=== PATIENT | female | born 1950 | race Caucasian/White ===

== ENCOUNTER → 2016-04-24 | Outpatient (CLI) | payer OTHER ==
[2014-04-03 16:56] VITALS: BP 125/75
[~2016-04-24] MED LIST: ANAS1TAB3 PO; ASPI81TA50 PO; CHOL100013 PO; CLON1TAB3 PO; CLON2TAB2 PO; EZET10TA3 PO; LEDI1TAB PO; LISI10TA2 PO; LORA0.5T96 PO; LOVA20TA2 PO; MULT1CAP15 PO; OMEG300C PO; PROVENTIL HFA6.7 GM IH; QUET50TA5 PO; SERT50TA PO
--- NOTE | 2016-04-24 13:01 | RAD ---
DATE: 04/24/2016 EXAM: DIGITAL DIAGNOSTIC BILATERAL HISTORY: Right breast carcinoma. COMPARISON: 04/09/2015. This study was interpreted with the benefit of Computerized Aided Detection (CAD). FINDINGS: Postlumpectomy changes right breast are noted. The overall parenchymal pattern is stable. There is moderate parenchymal density bilaterally. No recurrent mass or malignant appearing microcalcifications are seen. The axillae are stable. IMPRESSION: Stable bilateral mammograms with no mammographic features suspicious for malignancy. BI-RADS CATEGORY: 2 BENIGN FINDING(S) RECOMMENDED FOLLOW-UP: 12M 12 MONTH FOLLOW-UP PQRS compliance statement: Patient information was entered into a reminder system with a target due date for the next mammogram. Mammography is a sensitive method for finding small breast cancers, but it does not detect them all and is not a substitute for careful clinical examination. A negative mammogram does not negate a clinically suspicious finding and should not result in delay in biopsying a clinically suspicious abnormality. "Our facility is accredited by the [employer] Mammography Program."
== END | disposition home or self-care (01) ==
LOC: MAMMO 12:48
PROVIDERS: ATTEND Internal Medicine Hematology & Oncology
DX: R92.8 Other abnormal and inconclusive findings on diagnostic imaging of breast (principal); N63 Unspecified lump in breast; Z85.3 Personal history of malignant neoplasm of breast
CPT/HCPCS: 77051; G0204; 77066

== ENCOUNTER 2017-03-02 12:50 | Emergency (ER) | payer OTHER ==
[~2017-03-02] VITALS: Ht 165.1 cm; Wt 57.2 kg
[~2017-03-02 12:50] MED LIST changes: +EZET10TA18 PO; -EZET10TA3 PO; +OXYC10TA PO; +VALIUM10 MG PO
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
--- NOTE | 2017-03-02 14:20 | RAD ---
Left RIBS with chest, 3 views, 03/02/2017: History: Fall, pain, coughing up blood No rib fracture is identified. There is no evidence of pneumothorax or hemothorax. There appears to be minimal streaky atelectasis in the left base. There is calcific plaquing of the aorta. The heart size is normal. The right chest is clear. There is a mild thoracolumbar scoliosis with mild scattered marginal spurring. IMPRESSION: No acute left rib abnormality is detected.
[2017-03-02 14:34] VITALS: BP 128/93
[2017-03-02 15:20] LABS: BILIRUBIN,URINE SMALL (NEG); GLUCOSE,URINE NEGATIVE (NEG); NITRITE,URINE NEGATIVE (NEG); PROTEIN,URINE 30 mg/dL (NEG-TRACE); UROBILINOGEN,URINE 0.2 mg/dL (0.2 mg/dL)
[2017-03-02 15:24] LABS: BACTERIA,URINE FEW /HPF (0-FEW); RBC,URINE >40 /HPF (0-2); SQUAMOUS EPITHELIAL CELL,UR FEW /LPF; WBC,URINE OCC /HPF (0-4)
== END 2017-03-02 15:56 | disposition home or self-care (01) ==
LOC: ER 12:50
DX: S20.212A Contusion of left front wall of thorax, initial encounter (principal); R31.9 Hematuria, unspecified; Z88.2 Allergy status to sulfonamides; W18.39XA Other fall on same level, initial encounter; Y93.89 Activity, other specified; Y92.89 Other specified places as the place of occurrence of the external cause; Y99.8 Other external cause status
CPT/HCPCS: 71101; 81001; 87086; 99285-25

== ENCOUNTER → 2017-03-22 | Outpatient (CLI) | payer OTHER ==
[2017-03-02 14:34] VITALS: BP 128/93
--- NOTE | 2017-03-22 17:22 | RAD ---
Renal ultrasound 03/22/2017 Clinical history: Hematuria. Technique: A real-time ultrasound examination of both kidneys and the urinary bladder was performed. Multiple images were obtained. Findings: Both kidneys are within normal limits in size and echogenicity. The right kidney measures 10.3 cm in length. Left kidney measures 11.0 cm in length. No focal abnormality of either kidney is seen. No renal calculus is noted. There is no evidence of hydronephrosis. The urinary bladder is distended with urine. No abnormality of the urinary bladder is seen. The post void residual is 18 mL. Impression: Negative study.
== END | disposition home or self-care (01) ==
LOC: US 15:05
PROVIDERS: ATTEND Family Medicine
DX: R31.9 Hematuria, unspecified (principal)
CPT/HCPCS: 76770

== ENCOUNTER → 2017-05-18 | Outpatient (CLI) | payer OTHER | END | disposition home or self-care (01) | LOC: MAMMO 12:05 | DX: C50.411 Malignant neoplasm of upper-outer quadrant of right female breast (principal); Z17.0 Estrogen receptor positive status [ER+] | CPT/HCPCS: 77066 ==

== ENCOUNTER → 2018-06-05 | Outpatient (CLI) | payer MEDICARE, OTHER ==
[~2018-06-05] MED LIST changes: +ALBU2.5V8 IH; -ANAS1TAB3 PO; +ANAS1TAB47 PO; +CLON1TAB11 PO; -CLON1TAB3 PO; -CLON2TAB2 PO; +CLON2TAB9 PO; -PROVENTIL HFA6.7 GM IH
--- NOTE | 2018-06-05 13:01 | RAD ---
DATE: 06/05/2018 EXAM: MAMMO DENYS DIAG BILAT HISTORY: Routine screening COMPARISON: 05/18/2017 This study was interpreted with the benefit of Computerized Aided Detection (CAD). Breast Density: SCATTERED The breast parenchyma shows scattered fibroglandular densities. Breast parenchyma level B. FINDINGS: 2-D and 3-D tomosynthesis imaging was performed in CC and MLO projections. There are stable posttherapeutic changes in the right breast. No new or enlarging breast densities are seen. Benign type calcification is present on the right. No suspicious microcalcifications have developed. IMPRESSION: Stable mammograms without evidence of malignancy. BI-RADS CATEGORY: 2 BENIGN FINDING(S) RECOMMENDED FOLLOW-UP: 12M 12 MONTH FOLLOW-UP PQRS compliance statement: Patient information was entered into a reminder system with a target due date for the next mammogram. Mammography is a sensitive method for finding small breast cancers, but it does not detect them all and is not a substitute for careful clinical examination. A negative mammogram does not negate a clinically suspicious finding and should not result in delay in biopsying a clinically suspicious abnormality. "Our facility is accredited by the [employer] Mammography Program."
== END | disposition home or self-care (01) ==
LOC: MAMMO 11:55
PROVIDERS: ATTEND Radiology Radiation Oncology
DX: Z08 Encounter for follow-up examination after completed treatment for malignant neoplasm (principal); Z85.3 Personal history of malignant neoplasm of breast
CPT/HCPCS: 77066; G0279; 77062

== ENCOUNTER → 2018-09-16 | Outpatient (CLI) | payer MEDICARE, OTHER ==
--- NOTE | 2018-09-16 17:24 | KCIC ---
CHEST PA LATERAL Clinical indications: Emphysema. Difficulty breathing. Smoker for years. History of breast cancer. Comparison: None available. Findings: Hyperinflation is seen consistent with COPD. No acute lung infiltrate or pleural effusion or pulmonary edema or lung mass or pneumothorax is seen. The heart size, pulmonary vasculature, mediastinum and both ayaan are unremarkable. The osseous structures appear intact. Impression: No acute radiographic abnormality is seen. Electronically signed by: Magdaleno Pozo MD (09/16/2018 5:21 PM) [place] [id number]
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
== END | disposition home or self-care (01) ==
LOC: KCIC 13:26
PROVIDERS: ATTEND Family Medicine
DX: J43.8 Other emphysema (principal); J34.89 Other specified disorders of nose and nasal sinuses; F17.200 Nicotine dependence, unspecified, uncomplicated; Z85.3 Personal history of malignant neoplasm of breast
CPT/HCPCS: 70160; 71046

== ENCOUNTER → 2019-07-10 | Outpatient (CLI) | payer MEDICARE, OTHER ==
[~2019-07-10] MED LIST changes: -ALBU2.5V8 IH; +ALBU2.5V8 INH; -CLON1TAB11 PO; +CLONAZEPAM1 MG PO; -EZET10TA18 PO; +EZET10TA20 PO; +LISI-334 PO; +PROVENTIL HFA6.7 GM IH
--- NOTE | 2019-07-10 12:53 | RAD ---
DATE: 07/10/2019 12:09 PM EXAM: DIGITAL DIAGNOSTIC BILATERAL HISTORY: History of breast cancer. Right breast lumpectomy. Screening. COMPARISON: June 05, 2018. 2017. Bilateral CC and MLO views of the breasts were performed. Bilateral breast tomosynthesis was performed in CC and MLO projections. This study was interpreted with the benefit of Computerized Aided Detection (CAD). FINDINGS: Breast Density: SCATTERED The breast parenchyma shows scattered fibroglandular densities. Breast parenchyma level B Right breast post lumpectomy findings, unchanged. Benign-appearing calcifications bilaterally. No suspicious masses, microcalcifications or architectural distortion is present to suggest malignancy in either breast. The visualized axillae are unremarkable. IMPRESSION: No mammographic evidence of malignancy. Right breast post lumpectomy findings, unchanged. BI-RADS CATEGORY: 2 BENIGN FINDING(S) RECOMMENDED FOLLOW-UP: 12M 12 MONTH FOLLOW-UP Annual screening mammography is recommended, unless clinically indicated sooner based on symptoms or change in physical exam. PQRS compliance statement: Patient information was entered into a reminder system with a target due date one year for the next mammogram. Mammography is a sensitive method for finding small breast cancers, but it does not detect them all and is not a substitute for careful clinical examination. A negative mammogram does not negate a clinically suspicious finding and should not result in delay in biopsying a clinically suspicious abnormality. "Our facility is accredited by the [employer] Mammography Program."
== END ==
LOC: MAMMO 12:05
PROVIDERS: ATTEND Internal Medicine Hematology & Oncology
DX: C50.411 Malignant neoplasm of upper-outer quadrant of right female breast (principal); R92.2 Inconclusive mammogram; R92.1 Mammographic calcification found on diagnostic imaging of breast; Z17.0 Estrogen receptor positive status [ER+]; Z85.3 Personal history of malignant neoplasm of breast
CPT/HCPCS: 77066

== ENCOUNTER → 2019-11-28 | Outpatient (CLI) | payer MEDICARE, OTHER ==
--- NOTE | 2019-11-28 15:05 | KCIC ---
EXAM: Brain MRI without contrast. HISTORY: Left hand paresthesia. Incontinence. TECHNIQUE: Multiplanar, multisequence magnetic resonance imaging of the brain was performed without contrast. COMPARISON: None. FINDINGS: There is no restricted diffusion to suggest acute or subacute infarction. There is no susceptibility effect to suggest hemorrhage. There is no mass effect or midline shift. There is no hydrocephalus. There are several scattered focal areas of signal change within the cerebral white matter, a nonspecific finding. The orbits are unremarkable. There is mild paranasal sinus because of thickening. There is a small amount of fluid within the left mastoid air cells. There are normal flow voids within the cerebral vessels. No calvarial lesion is seen. IMPRESSION: 1. No acute intracranial finding. 2. Scattered focal areas of signal change within the cerebral white matter, most commonly due to chronic small vessel disease in patients of this age. The possibility of superimposed focal areas of demyelination is not completely excluded given the patient history. Electronically signed by: Katie Fortune MD (11/28/2019 3:01 PM) [facility]
== END | disposition home or self-care (01) ==
LOC: KCIC MRI 13:24
PROVIDERS: ATTEND Family Medicine
DX: R20.2 Paresthesia of skin (principal); R15.9 Full incontinence of feces; I73.9 Peripheral vascular disease, unspecified
CPT/HCPCS: 70551

== ENCOUNTER → 2020-06-28 | Outpatient (CLI) | payer MEDICARE, OTHER ==
[~2020-06-28] MED LIST changes: -LISI-334 PO; +LISI10TA16 PO; -LISI10TA2 PO; +LISI20TA18 PO
--- NOTE | 2020-06-29 07:22 | RAD ---
XR BILATERAL HIP (WITH OR WITHOUT PELVIS) 2 VIEWS_RIGHT 06/28/2020 2:00 PM INDICATION: Back pain, right hip pain COMPARISON: None available. TECHNIQUE: AP view the pelvis and 2 dedicated views the right hip are provided. FINDINGS/ IMPRESSION: There is no acute fracture or dislocation. Mild degenerative changes of the sacroiliac joints, left g reater than right with joint space narrowing and marginal osteophytosis. Moderate right and mild left hip osteoarthrosis with joint space narrowing, subcortical sclerosis and marginal osteophytosis. Oss ific bodies identified in the inferior right femoral acetabular joint space. Bone mineralization is w ithin normal limits. Regional soft tissues are within normal limits. There is no soft tissue gas or o sseous erosion. No radiopaque foreign body. Electronically signed by: Shivani Lopez MD (06/29/2020 7:19 AM) [id number]
== END ==
LOC: RAD 13:27
PROVIDERS: ATTEND Family Medicine
DX: M46.1 Sacroiliitis, not elsewhere classified (principal); M25.751 Osteophyte, right hip
CPT/HCPCS: 73502

== ENCOUNTER → 2020-07-14 | Outpatient (CLI) | payer MEDICARE, OTHER ==
--- NOTE | 2020-07-19 10:17 | RAD ---
DATE: 07/14/2020 EXAM: DIGITAL DIAGNOSTIC BILATERAL HISTORY: History of right lumpectomy in 2015. Annual mammogram. COMPARISON: 07/10/2019, 06/05/2018, 05/18/2017, 04/24/2016, 04/09/2015 This study was interpreted with the benefit of Computerized Aided Detection (CAD). Breast Density: SCATTERED The breast parenchyma shows scattered fibroglandular densities. Breast parenchyma level B. FINDINGS: Surgical changes of lumpectomy in the upper right breast. No suspicious mass, calcifications, or architectural distortion in either breast. IMPRESSION: No evidence of malignancy. BI-RADS CATEGORY: 1 NEGATIVE RECOMMENDED FOLLOW-UP: PQRS compliance statement: Patient information was entered into a reminder system with a target due date for the next mammogram. Mammography is a sensitive method for finding small breast cancers, but it does not detect them all and is not a substitute for careful clinical examination. A negative mammogram does not negate a clinically suspicious finding and should not result in delay in biopsying a clinically suspicious abnormality. "Our facility is accredited by the [employer] Mammography Program." CALEBD
== END ==
LOC: MAMMO 13:48
PROVIDERS: ATTEND Internal Medicine Hematology & Oncology
DX: R92.8 Other abnormal and inconclusive findings on diagnostic imaging of breast (principal); Z85.3 Personal history of malignant neoplasm of breast
CPT/HCPCS: 77066

== ENCOUNTER → 2020-08-09 | Outpatient (CLI) | payer MEDICARE, OTHER ==
--- NOTE | 2020-08-09 15:47 | KCIC ---
INDICATION: Screening for osteopenia/osteoporosis. Postmenopausal evaluation. COMPARISON: June 22, 2014 TECHNIQUE: Bone densitometry was performed through the lumbar spine and proximal femur. IMPRESSION: Lumbar Spine: BMD: 0.86 T-Score: -0.7 Range: Lower limits of normal. Decreased by 9 percent from prior Proximal Femur: BMD: 1.34 T-Score: 2.7 Range: Normal. Increased by 1 percent from prior. World Health Organization Criteria for Bone Density: T-Score: > -1.0: Normal Range < -1.0 to -2.5: Osteopenic Range < -2.5: Osteoporotic Range Electronically signed by: Lauro Ortega MD (08/09/2020 3:45 PM) [id number]
== END ==
LOC: KCIC DEXA 15:07
PROVIDERS: ATTEND Internal Medicine Hematology & Oncology
DX: C50.411 Malignant neoplasm of upper-outer quadrant of right female breast (principal); Z78.0 Asymptomatic menopausal state; Z17.0 Estrogen receptor positive status [ER+]
CPT/HCPCS: 77080

== ENCOUNTER → 2020-10-01 | Outpatient (CLI) | payer MEDICARE, OTHER ==
[~2020-10-01] MED LIST changes: +BUPIVACAINE MPF 0.5% 10 ML VIAL. INT ART ONE; +IOHEXOL 300 MG/ML 50 ML VIAL. INT ART ONE; +methylPREDNISolone ACETATE 40 MG/ML VIAL. INT ART ONE
--- NOTE | 2020-10-01 16:24 | KCIC ---
PROCEDURE: Right hip steroid injection under fluoroscopic guidance INDICATION: Right hip pain. Osteoarthritis. CONTRAST: 5 cc Omnipaque 300 FINDINGS: The risks, benefits and alternatives to the procedure were discussed with the patient. A timeout was performed to confirm the patient's identity and laterality of the injection. Utilizing sterile technique, fluoroscopic guidance and local anesthesia with 1% lidocaine, the right hip joint was accessed utilizing a 22-gauge, 3.5" spinal needle. A small amount contrast was used to confirm the intra-articular location of the needle tip. Subsequently, 2 cc of bupivacaine mixed with 80 mg Depo-Medrol was injected. There were no immediate complications. Fluoroscopy time: 11 seconds Number of images obtained: 1 Impression: Technically successful right hip steroid injection under fluoroscopic guidance. Electronically signed by: RAD SÁNCHEZ MD (10/01/2020 4:22 PM) [id number]
== END | disposition home or self-care (01) ==
LOC: KCIC 12:26
PROVIDERS: ATTEND Orthopaedic Surgery
DX: M16.11 Unilateral primary osteoarthritis, right hip (principal); I10 Essential (primary) hypertension; F41.9 Anxiety disorder, unspecified; F17.210 Nicotine dependence, cigarettes, uncomplicated; Z85.3 Personal history of malignant neoplasm of breast; Z79.899 Other long term (current) drug therapy; Z98.890 Other specified postprocedural states; Z79.82 Long term (current) use of aspirin; Z72.89 Other problems related to lifestyle; Z88.2 Allergy status to sulfonamides
CPT/HCPCS: 20610; 77002; J1030; J3490; Q9967

== ENCOUNTER → 2021-01-17 | Outpatient (CLI) | payer MEDICARE, OTHER ==
[~2021-01-17] MED LIST changes: +AMLO-187 PO; -BUPIVACAINE MPF 0.5% 10 ML VIAL. INT ART ONE; +CALC-71 PO; +CYCL10TA19 PO; +FLUT16SP NS; -IOHEXOL 300 MG/ML 50 ML VIAL. INT ART ONE; +MELA3TAB43 PO; +MELO15TA23 PO; +METO-239 PO; +ONDA4TAB7 PO; +OXYC5CAP PO; +WARF3TAB50 PO; -methylPREDNISolone ACETATE 40 MG/ML VIAL. INT ART ONE; +super beets PO
[2021-01-17 08:54] LABS: ALBUMIN 4.4 g/dL (3.4-5.0); BASO # 0.1 x10^3/uL (0.0-0.2); BASO % 1 % (0-3); CALCIUM 9.3 mg/dL (8.5-10.1); CREATININE 1.2 mg/dL (0.6-1.0); EOS # 0.3 x10^3/uL (0.0-0.7); EOS % 4 % (0-3); GFR 44.7; LYMPH # 1.7 x10^3/uL (1.0-4.8); LYMPH % 25 % (24-48); MEAN CORPUSCULAR HEMOGLOBIN 32 pg (25-35); MEAN CORPUSCULAR HGB CONC 34 g/dL (31-37); MEAN CORPUSCULAR VOLUME 95 fL (79-100); MONO # 0.5 x10^3/uL (0.0-1.1); MONO % 8 % (0-9); NEUT # 4.3 x10^3/uL (1.8-7.7); NEUT % 62 % (31-73); PLATELET COUNT 212 x10^3/uL (140-400); POTASSIUM 4.7 mmol/L (3.5-5.1); RED BLOOD COUNT 4.63 x10^6/uL (3.50-5.40); RED CELL DISTRIBUTION WIDTH 12.8 % (11.5-14.5); WHITE BLOOD COUNT 6.9 x10^3/uL (4.0-11.0)
--- NOTE | 2021-01-17 12:26 | EKG ---
[facility] [address] [place] [address] Test Date: 2021-01-17 Test Time: 12:02:58 Pat Name: ARTURO MACHADO Department: Room: Gender: F Receiving Worker: : [id number] Requested By: LORNA VILLALTA Order Number: [id number] Reading MD: Bony Doty MD Measurements Intervals [place] Rate: 61 P: 43 [place]: 126 QRS: 47 QRSD: 82 T: 62 QT: 446 QTc: 451 Interpretive Statements SINUS RHYTHM Electronically Signed On 01-18-2021 8:55:15 CDT by Bony Doty MD
--- NOTE | 2021-01-17 15:14 | RAD ---
AP and Lateral Views of the Chest 01/17/2021 12:55 PM Indication: Reason: JOINT PREHAB CLASS-RIGHT HIP TOTAL ATHROPLASTY SCHEDULED 01/26/2021 / Spl. Instru ctions: / History: HX HYPERTENSION/TOBACCO ABUSE Comparison: Chest radiograph September 16, 2018. Findings: There is no focal consolidation or infiltrate identified. Heart size is normal. Mild aortic calcification noted. There is no evidence of pneumothorax or pleural effusion. No acute osseous abno rmalities are identified. Impression: No evidence of acute cardiopulmonary process. Electronically signed by: Leopoldo Jones MD (01/17/2021 3:11 PM) [id number]
[2021-01-18 00:12] LABS: HEMOGLOBIN A1C 5.9 % (4.8-5.6)
== END ==
LOC: SURGPAT 12:24
PROVIDERS: ATTEND Orthopaedic Surgery
DX: Z01.818 Encounter for other preprocedural examination (principal); I70.0 Atherosclerosis of aorta; M16.11 Unilateral primary osteoarthritis, right hip
CPT/HCPCS: 36415; 71046; 80048; 82040; 82306; 83036; 85025; 85610; 85651; 85730; 87641; 93005

== ENCOUNTER → 2021-01-19 | Outpatient (CLI) | payer MEDICARE, OTHER | LOC: LAB 13:46 | PROVIDERS: ATTEND Orthopaedic Surgery | DX: Z01.818 Encounter for other preprocedural examination (principal); M16.11 Unilateral primary osteoarthritis, right hip | CPT/HCPCS: 36415; 80307 ==

== ENCOUNTER → 2021-01-25 | Outpatient (CLI) | payer MEDICARE, OTHER ==
[2021-01-25 16:07] LABS: BILIRUBIN,URINE NEGATIVE (NEG); CLARITY,URINE CLEAR; COLOR,URINE YELLOW; NITRITE,URINE POSITIVE (NEG); PH,URINE 5.5 (<5.0-8.0); PROTEIN,URINE NEGATIVE (NEG-TRACE); UROBILINOGEN,URINE 0.2 mg/dL (0.2 mg/dL)
[2021-01-25 16:11] LABS: BACTERIA,URINE MANY /HPF (0-FEW)
[2021-01-25 16:12] LABS: RBC,URINE OCC /HPF (0-2)
== END ==
LOC: LAB 12:41
PROVIDERS: ATTEND Orthopaedic Surgery
DX: N39.0 Urinary tract infection, site not specified (principal)
CPT/HCPCS: 81001; 87077; 87086; 87186

== ENCOUNTER 2021-02-01 09:35 | Inpatient (IN) | payer MEDICARE, OTHER ==
[2021-02-01] VITALS (8 sets, daily range): BP systolic 91–126; BP diastolic 56–65
[~2021-02-01] VITALS: Ht 162.6 cm; Wt 75.6 kg
[~2021-02-01 09:35] MED LIST changes: +ACETAMINOPHEN 500 MG TABLET PO PRN; +GABAPENTIN 300 MG CAPSULE. PO ONE; +HYDROmorphone 2 MG/ML VIAL IVP PRN; +IV RINGERS,LACTATED 1000ML 1,000 ML IV SCH; +MELOXICAM 7.5 MG TABLET PO ONE; +MORPHINE SULFATE 2 MG/ML INJ. IVP PRN; +MORPHINE SULFATE 5 MG, KETOROLAC 30MG VIAL 30 MG, ROPIVacaine 0.5% PF 60 ML, EPINEPHrin... INT ART ONE; -OXYC5CAP PO; +PROCHLORPERAZINE 10 MG/2 ML VIAL. IVP PRN; -WARF3TAB50 PO; +ceFAZolin SODIUM IV Push 1 GM VIAL. IVP PRN; +fentaNYL PF VIAL 100 MCG/2 ML VIAL IVP PRN
[2021-02-01] MEDS ORDERED: PROPOFOL 10 MG/ML (20ML) VIAL. IV ONE ×2 (09:47)
[2021-02-01] MEDS ORDERED: DEXAMETHASONE SOD PHOS 4 MG/ML VIAL ONE (09:47)
[2021-02-01] MEDS ORDERED: LIDOCAINE 2% PF 5 ML VIAL. ONE (09:47)
[2021-02-01] MEDS ORDERED: ONDANSETRON PF 4 MG/2 ML VIAL. ONE (09:47)
[2021-02-01] MEDS ORDERED: ROCURONIUM 50 MG/5 ML VIAL. ONE ×2 (09:48→13:33)
[2021-02-01] MEDS ORDERED: GLYCOPYRROLATE 1 MG/5 ML VIAL. ONE ×3 (09:48→14:12)
[2021-02-01] MEDS ORDERED: fentaNYL PF VIAL 100 MCG/2 ML VIAL ONE (10:28)
[2021-02-01 10:32] LABS: BILIRUBIN,URINE NEGATIVE (NEG); CLARITY,URINE CLEAR; COLOR,URINE YELLOW; NITRITE,URINE NEGATIVE (NEG); PROTEIN,URINE NEGATIVE (NEG-TRACE); UROBILINOGEN,URINE 0.2 mg/dL (0.2 mg/dL)
[2021-02-01 10:50] LABS: BACTERIA,URINE 0 /HPF (0-FEW); RBC,URINE 0 /HPF (0-2); WBC,URINE 0 /HPF (0-4)
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
[2021-02-01 11:35] LABS: PROTHROMBIN TIME PATIENT 13.5 SEC (11.7-14.0)
[2021-02-01] MEDS ORDERED: PHENYLEPHRINE in 0.9% NACL PF 1 MG/10 ML SYRINGE. IV ONE ×2 (12:25→13:35)
[2021-02-01] MEDS ORDERED: ePHEDrine PF IN SALINE 50 MG/10 ML SYRINGE. IV ONE (12:33)
[2021-02-01] MEDS ORDERED: HYDROmorphone 2 MG/ML VIAL ONE (13:00)
[2021-02-01] MEDS ORDERED: VANCOMYCIN 1 GM VIAL. ONE (13:24)
[2021-02-01] MEDS ORDERED: NEOSTIGMINE METHYLSULFATE 5 MG/5 ML SYRINGE. ONE (13:36)
[2021-02-01] MEDS ORDERED: MORPHINE SULFATE 2 MG/ML INJ. ONE (14:46)
[2021-02-01] MEDS ORDERED: ceFAZolin SODIUM IV Push 1 GM VIAL. IVP SCH (17:00)
[2021-02-01] MEDS ORDERED: fentaNYL PF VIAL 100 MCG/2 ML VIAL IVP PRN (17:15)
[2021-02-01] MEDS ORDERED: diphenhydrAMINE 50 MG/ML VIAL IVP PRN (17:15)
[2021-02-01] MEDS ORDERED: MORPHINE SULFATE 2 MG/ML INJ. IVP PRN (17:15)
[2021-02-01] MEDS ORDERED: CALCIUM CARBONATE 500 MG TAB.CHEW PO PRN (17:15)
[2021-02-01] MEDS ORDERED: DEXTROSE 50% 25 GM / 50ML DISP.SYRIN. IV PRN (17:15)
[2021-02-01] MEDS ORDERED: PROCHLORPERAZINE 5 MG TABLET. PO PRN (17:15)
[2021-02-01] MEDS ORDERED: 0.9 % SODIUM CHLORIDE 10 ML DISP.SYRIN. IV PRN (17:15)
[2021-02-01] MEDS: IV NORMAL SALINE 1000ML BAG 1,000 ML IV SCH (17:15)
--- NOTE | 2021-02-01 17:45 | NUR ---
RECEIVED FROM RECOVERY. THEY STATES THAT SHE ESTHER BEEN SLEEPING DOWN THERE. SHE DOES AROUSE TO NAME AND FOLLOWS COMMANDS BUT RESUMES SLEEP QUICKLY. O2 SAT ON 2.5 L IS 85% O2 INCREASED TO 4 LITERS TO GET A CONSISTENT 91-93%. IV FLUIDS CONTINUE AT 100CC HR UNTIL SHE NEEDS TO URINATE. SHE ASKED FOR HER TEETH AND CELL PHONE GIVEN. SHE HAS GOOD MOTION AND PULSES BILATERAL LOWER EXTREMITIES, STRENGTH. STRENGTH IN LOWER EXTREMITIES IS WEAK BILATERAL RELATED TO SEDATION
--- NOTE | 2021-02-01 17:59 | NUR ---
Pharmacy Warfarin Dosing Note S:Pharmacy consulted to assist with anticoagulation therapy started 02/01/21 with target INR: 1.6 - 2.5 O:ARTURO MACHADO is a 70 year old F with [facility] LABS: Last INR: 1.0 Last HGB: Last HCT: Last PLT: Last dose of given on at Previous Regimen: Vitamin K given: N Drug Interaction Changes: Ongoing Drug Interactions: A:INR of 1.0 is below desired range. Target range for this patient is: 1.6 - 2.5 P: Warfarin dose: 5 mg Today at 1800. Bridge Therapy: None Next INR due tomorrow. Pharmacy anticoagulation service will continue to follow. Ld Jim [facility], 02/01/21 [id number]
[2021-02-01] MEDS ORDERED: WARFARIN 5 MG TABLET. PO ONE (18:00)
--- NOTE | 2021-02-01 18:23 | PDOC4 ---
Operative Note Operative Note Date of surgery: 02/01/2021 Preoperative diagnosis: Degenerative joint disease right hip Postoperative diagnosis: Same Operative procedure: Right total hip arthroplasty with anterior approach Surgeon Krystina Pug [place] Operator: Edgardo yoder Anesthesia: General Estimated blood loss: 400 cc Complications: None Drains: None Operative indications: Please see my orthopedic clinic note and dictated history and physical for detailed operative indications and note that we covered risks benefits postoperative course of the procedure. We did discuss the goal of equa lizing her leg lengths and that may not be entirely possible due to stability concerns which would override. We specifically discussed the possibility of infection leg length inequality, nerve or blood vessel damage premature wear or loosening medical or other anesthetic complications among others. All her questions were answered and she wishes to proceed with surgical evaluation and treatment having given informed consent Operative text: Patient was identified procedure verified patient placed in the supine position on the [place] fracture table after adequate amounts of general anesthesia were administered. All bony prominences were well-padded and left hip was prepped and draped in the standard sterile fashion. After timeout was performed patient procedure identified and verified an incision was made just distal to the anterior superior iliac spine running along the tensor fascia mikey for a distance of about 6 inches. Fascia was incised tensor fascia mikey was taken laterally and circumflex vessels were located and coagulated and the anterior capsule was exposed with the rectus femoris gently retracted medially along with the underlying fascia that was dissected free. Capsule was split in a T-shaped incision and superior aspect of the capsule was excised and further superior release was carried out with the hip in external rotation. Hip was returned to 40 degrees external rotation and a napkin ring cut was made with an Avenir Katey broach for reference napkin ring was removed and femoral head was removed and sized. Reaming was carried out to a size 53 with a size 54 Biomet G7 acetabular shell was placed in proper version under fluoroscopic guidance and excellent scratch fit was noted. A 40 mm vitamin E liner was impacted into place. Femur was brought into maximum external rotation extension and adduction and release was carried out at the 11 o'clock position to free up the femur and retractors were placed medially and above the greater trochanter for maximum femoral exposure box osteotome was used along with the rattail rasp and successive size broaching up to a size 2 which provided excellent stability and fit within the canal. Calcar reaming was carried out and trial fitting with a +0 40 mm head to reproduce leg length and offset appropriately under fluoroscopic guidance and matched leg lengths and offset to the contralateral left hip. Trial components were removed and a size 2 standard offset collared Avenir stem was impacted into place with a +0 ceramic 40 mm head. Excellent stability and range of motion were noted and leg length and offset were reproduced closely according to preoperative measurements and measurements from the contralateral side. Thorough irrigation carried out with normal saline solution and pulse lavage. Intra-articular mixture was injected subperiosteally throughout the joint capsule and subcutaneous areas and 1 g vancomycin sprinkled throughout the joint capsule area. Fascia was closed with #1 PDS strata fix suture in a running fashion subcutaneous closure with buried Vicryl skin closure with subcuticular Monocryl and a debra dressing was applied. Patient was returned to recovery room in stable condition having tolerated the procedure well. Edgardo yoder was present for the procedure and assisted in the patient positioning prepping draping retraction closure and dressings LORNA VILLALTA MD Feb 01, 2021 18:23
[2021-02-01] MEDS: ONDANSETRON ODT 4 MG TAB.RAPDIS. PO SCH (19:20)
[2021-02-01] MEDS: ONDANSETRON PF 4 MG/2 ML VIAL. IVP SCH (19:20)
--- NOTE | 2021-02-01 19:29 | PDOC2 ---
CONSULT Date of Consult Date of Consult DATE: 02/01/21 TIME: 19:26 Current Medications Current Medications Current Medications Morphine Sulfate 5 mg/Ketorolac Tromethamine 30 mg/Ropivacaine 60 ml/Epinephrine HCl 0.5 mg/Sodium Chloride 100 ml @ 100 mls/hr 1X ONCE INT ART Last admi nistered on 02/01/21at 14:09; Start 02/01/21 at 06:00; Stop 02/01/21 at 06:59; Status DC Fentanyl Citrate (Fentanyl 2ml Vial) 25 mcg PRN Q5MIN PRN IVP MILD PAIN 1-3; Start 02/01/21 at 06:00; Stop 02/02/21 at 05:59 Fentanyl Citrate (Fentanyl 2ml Vial) 50 mcg PRN Q5MIN PRN IVP MODERATE PAIN 4- 6; Start 02/01/21 at 06:00; Stop 02/02/21 at 05:59 Morphine Sulfate (Morphine Sulfate) 1 mg PRN Q10MIN PRN IVP SEVERE PAIN 7-10; Start 02/01/21 at 06:00; Stop 02/02/21 at 05:59 Ringer's Solution 1,000 ml @ 30 mls/hr Q24H IV Last administered on 02/01/21at 11:11; Start 02/01/21 at 06:00; Stop 02/01/21 at 17:59; Status DC Hydromorphone HCl (Dilaudid) 0.5 mg PRN Q10MIN PRN IVP SEVERE PAIN 7-10, 2nd CHOICE; Start 02/01/21 at 06:00; Stop 02/02/21 at 05:59 Prochlorperazine Edisylate (Compazine) 5 mg PACU PRN PRN IVP NAUSEA, MRX1; Start 02/01/21 at 06:00; Stop 02/02/21 at 05:59 Cefazolin Sodium (Ancef) 1 gm 1X PREOP PRN IVP PRIOR TO PROCEDURE; Start 02/01/21 at 08:00; Stop 02/01/21 at 18:58; Status DC Meloxicam (Mobic) 15 mg 1X ONCE PO Last administered on 02/01/21at 11:12; Start 02/01/21 at 08:00; Stop 02/01/21 at 08:01; Status DC Gabapentin (Neurontin) 600 mg 1X ONCE PO Last administered on 02/01/21at 11:12; Start 02/01/21 at 08:00; Stop 02/01/21 at 08:01; Status DC Acetaminophen (Tylenol) 1,000 mg 1X PREOP PRN PO PRIOR TO PROCEDURE Last administered on 02/01/21at 11:13; Start 02/01/21 at 08:00 Lidocaine HCl (Lidocaine Pf 2% Vial) 5 ml STK-MED ONCE .ROUTE ; Start 02/01/21 at 09:47; Stop 02/01/21 at 09:47; Status DC Propofol (Diprivan) 200 mg STK-MED ONCE IV ; Start 02/01/21 at 09:47; Stop 02/01/21 at 09:47; Status DC Propofol (Diprivan) 200 mg STK-MED ONCE IV ; Start 02/01/21 at 09:47; Stop 02/01/21 at 09:47; Status DC Ondansetron HCl (Zofran) 4 mg STK-MED ONCE .ROUTE ; Start 02/01/21 at 09:47; Stop 02/01/21 at 09:48; Status DC Dexamethasone Sodium Phosphate (Decadron) 4 mg STK-MED ONCE .ROUTE ; Start 02/01/21 at 09:47; Stop 02/01/21 at 09:48; Status DC Glycopyrrolate (Robinul) 1 mg STK-MED ONCE .ROUTE ; Start 02/01/21 at 09:48; Stop 02/01/21 at 09:48; Status DC Rocuronium [place] (Zemuron) 50 mg STK-MED ONCE .ROUTE ; Start 02/01/21 at 09 :48; Stop 02/01/21 at 09:48; Status DC Fentanyl Citrate (Fentanyl 2ml Vial) 100 mcg STK-MED ONCE .ROUTE ; Start 02/01/21 at 10:28; Stop 02/01/21 at 10:28; Status DC Phenylephrine HCl (PHENYLEPHRINE in 0.9% NACL PF) 1 mg STK-MED ONCE IV ; Start 02/01/21 at 12:25; Stop 02/01/21 at 12:25; Status DC Ephedrine Sulfate (ePHEDrine PF IN SALINE SYRINGE) 50 mg STK-MED ONCE IV ; Start 02/01/21 at 12:33; Stop 02/01/21 at 12:34; Status DC Hydromorphone HCl (Dilaudid) 2 mg STK-MED ONCE .ROUTE ; Start 02/01/21 at 13:00; Stop 02/01/21 at 13:00; Status DC Vancomycin HCl (Vancomycin) 1 gm STK-MED ONCE .ROUTE ; Start 02/01/21 at 13:24; Stop 02/01/21 at 13:24; Status DC Rocuronium [place] (Zemuron) 50 mg STK-MED ONCE .ROUTE ; Start 02/01/21 at 13:33; Stop 02/01/21 at 13:33; Status DC Phenylephrine HCl (PHENYLEPHRINE in 0.9% NACL PF) 1 mg STK-MED ONCE IV ; Start 02/01/21 at 13:35; Stop 02/01/21 at 13:35; Status DC Neostigmine [place] (Neostigmine Methylsulfate) 5 mg STK-MED ONCE .ROUTE ; Start 02/01/21 at 13:36; Stop 02/01/21 at 13:36; Status DC Glycopyrrolate (Robinul) 1 mg STK-MED ONCE .ROUTE ; Start 02/01/21 at 14:12; Stop 02/01/21 at 14:12; Status DC Glycopyrrolate (Robinul) 1 mg STK-MED ONCE .ROUTE ; Start 02/01/21 at 14:12; Stop 02/01/21 at 14:12; Status DC Morphine Sulfate (Morphine Sulfate) 2 mg STK-MED ONCE .ROUTE ; Start 02/01/21 at 14:46; Stop 02/01/21 at 14:46; Status DC Morphine Sulfate (Morphine Sulfate) 2 mg PRN Q1HR PRN IVP PAIN-SEE COMMENTS; Start 02/01/21 at 17:15 Fentanyl Citrate (Fentanyl 2ml Vial) 25 mcg PRN Q1HR PRN IVP PAIN, 2nd CHOICE; Start 02/01/21 at 17:15 Diphenhydramine HCl (Benadryl) 25 mg PRN Q6HRS PRN IVP ITCHING; Start 02/01/21 at 17:15 Warfarin Sodium (Coumadin Per Pharmacy) 1 each PRN DAILY PRN MC SEE COMMENTS Last administered on 02/01/21at 17:55; Start 02/01/21 at 17:15 Multivitamins (Thera M Plus) 1 tab DAILY PO ; Start 02/02/21 at 09:00 Senna/Docusate Sodium (Senna Plus) 1 tab DAILY PO ; Start 02/02/21 at 09:00 Ferrous Sulfate (Feosol) 325 mg BIDWMEALS PO ; Start 02/02/21 at 08:00 Sodium Chloride 1,000 ml @ 40 mls/hr Q24H IV Last administered on 02/01/21at 17:15; Start 02/01/21 at 17:15 Prochlorperazine Maleate (Compazine) 10 mg PRN Q4HRS PRN PO Nausea/vomiting, 2nd choice; Start 02/01/21 at 17:15 Magnesium Hydroxide (Milk Of Magnesia) 2,400 mg 1X PRN PRN PO CONSTIPATION; Start 02/02/21 at 06:00; Stop 02/03/21 at 05:59 Bisacodyl (Dulcolax Supp) 10 mg 1X PRN PRN [place] CONSTIPATION; Start 02/02/21 at 16:00; Stop 02/03/21 at 15:59 Zolpidem Tartrate (Ambien) 5 mg PRN QHS PRN PO INSOMNIA, MAY REPEAT IN 1HR; Start 02/01/21 at 17:15 Calcium Carbonate/ Glycine (Tums) 500 mg PRN QID PRN PO INDIGESTION; Start 02/01/21 at 17:15 Sodium Chloride (Normal Saline Flush) 10 ml QSHIFT PRN IV AFTER MEDS AND BLOOD DRAWS; Start 02/01/21 at 17:15 Acetaminophen (Tylenol) 1,000 mg Q6H PO ; Start 02/02/21 at 09:00 Meloxicam (Mobic) 15 mg DAILY PO ; Start 02/02/21 at 09:00 Tramadol HCl (Ultram) 50 mg Q6H PO ; Start 02/02/21 at 06:00 Gabapentin (Neurontin) 100 mg Q8HRS PO ; Start 02/02/21 at 06:00 Ondansetron HCl (Zofran) 4 mg Q6HRS IVP ; Start 02/01/21 at 18:00; Stop 02/02/21 at 12:01 Ondansetron HCl (Zofran Odt) 4 mg Q6HRS PO ; Start 02/01/21 at 18:00; Stop 02/02/21 at 12:01 Ondansetron HCl (Zofran) 4 mg PRN Q6HRS PRN IVP Nausea/vomiting, 1st choice; Start 02/02/21 at 12:00 Ondansetron HCl (Zofran Odt) 4 mg PRN Q6HRS PRN PO Nausea/vomiting, 1st choice; Start 02/02/21 at 12:00 Oxycodone HCl (Roxicodone) 5 mg PRN Q4HRS PRN PO Pain score 4-6; Start 02/01/21 at 17:15 Dextrose (Dextrose 50%-Water Syringe) 12.5 gm PRN Q15MIN PRN IV SEE COMMENTS; Start 02/01/21 at 17:15 Cefazolin Sodium (Ancef) 1 gm Q6H IVP ; Start 02/01/21 at 17:00; Stop 02/02/21 at 05:01 Ciprofloxacin (Cipro) 500 mg BID PO ; Start 02/01/21 at 21:00 Warfarin Sodium (Coumadin) 5 mg 1X WARF ONCE PO ; Start 02/01/21 at 18:00; Stop 02/01/21 at 18:01; Status DC Active Scripts Active Reported [super beets] 1 Cap PO DAILY Melatonin 3 Mg Tab.rapdis 3 Mg PO QHS Fluticasone Propionate Nasal [place] (Fluticasone Propionate) 16 Gm [place].susp 2 [place] NS DAILY Amlodipine Besylate 10 Mg Tablet 10 Mg PO DAILY Zofran (Ondansetron Hcl) 4 Mg Tablet 4 Mg PO BID PRN Metoprolol Succinate ( Xl ) (Metoprolol Succinate) 25 Mg Tab.er.24h 50 Mg PO DAILY Meloxicam 15 Mg Tablet 15 Mg PO DAILY Calcium 600 + Vit D Caplet (Calcium Carbonate/Vitamin D3) 1 Each Tablet 1 Each PO DAILY Proair Hfa Inhaler (Albuterol Sulfate) 8.5 Gm Hfa.aer.ad 1 Puff INH PRN Q6HRS PRN Lisinopril 20 Mg Tablet 40 Mg PO DAILY Valium (Diazepam) 10 Mg Tablet 5-10 Mg PO PRN BID PRN Lovastatin 20 Mg Tablet 20 Mg PO HS Clonazepam 1 Mg Tablet 1 Mg PO TID Arimidex (Anastrozole) 1 Mg Tablet 1 Mg PO DAILY Aspir-Low (Aspirin) 81 Mg Tablet.dr 1 Tab PO DAILY Multivitamins (Multivitamin) 1 Each Capsule 1 Each PO DAILY Fish Oil ([place]-3 Fatty Acids) 300 Mg Capsule 1,000 Mg PO DAILY Allergies Allergies: Coded Allergies: Sulfa (Sulfonamide Antibiotics) (Verified Allergy, Intermediate, 02/01/21) ezetimibe (Verified Adverse Reaction, Intermediate, Rash, 02/01/21) Vitals VITALS Vital Signs Date Time Temp Pulse Resp B/P (MAP) Pulse Ox O2 Delivery O2 Flow Rate FiO2 02/01/21 17:58 Nasal Cannula 4.0 02/01/21 17:30 98.0 78 20 105/65 95 98.0 Labs Labs Laboratory Tests Test 02/01/21 10:15 02/01/21 11:10 Urine Color Yellow Urine Clarity Clear Urine pH 5.0 (<5.0-8.0) Urine Specific [place] 1.020 (1.000-1.030) Urine Protein Negative mg/dL (NEG-TRACE) Urine Glucose (UA) Negative mg/dL (NEG) Urine Ketones (Stick) Negative mg/dL (NEG) Urine Blood Trace (NEG) Urine Nitrite Negative (NEG) Urine Bilirubin Negative (NEG) Urine Urobilinogen Dipstick 0.2 mg/dL (0.2 mg/dL) Urine Leukocyte Esterase Small (NEG) Urine RBC 0 /HPF (0-2) Urine WBC 0 /HPF (0-4) Urine Squamous Epithelial Cells Few /LPF Urine Bacteria 0 /HPF (0-FEW) Prothrombin Time 13.5 SEC (11.7-14.0) Prothromb Time International Ratio 1.0 (0.8-1.1) Activated Partial Thromboplast Time 27 SEC (24-38) Laboratory Tests Test 02/01/21 10:15 02/01/21 11:10 Urine Color Yellow Urine Clarity Clear Urine pH 5.0 (<5.0-8.0) Urine Specific [place] 1.020 (1.000-1.030) Urine Protein Negative mg/dL (NEG-TRACE) Urine Glucose (UA) Negative mg/dL (NEG) Urine Ketones (Stick) Negative mg/dL (NEG) Urine Blood Trace (NEG) Urine Nitrite Negative (NEG) Urine Bilirubin Negative (NEG) Urine Urobilinogen Dipstick 0.2 mg/dL (0.2 mg/dL) Urine Leukocyte Esterase Small (NEG) Urine RBC 0 /HPF (0-2) Urine WBC 0 /HPF (0-4) Urine Squamous Epithelial Cells Few /LPF Urine Bacteria 0 /HPF (0-FEW) Prothrombin Time 13.5 SEC (11.7-14.0) Prothromb Time International Ratio 1.0 (0.8-1.1) Activated Partial Thromboplast Time 27 SEC (24-38) Assessment/Plan Assessment/Plan Check CMP Renal U/S to assess for any anatomic abnormalities; could consider CT IVP if nonrevealing Patient on warfarin and getting Mobic will place on Pepcid Does seem patient got an adequate course of Levaquin but continue Cipro for total of 3 days for patient to get full 10-day course If Diarrhea continues consider checking C. difficile DAVON VILLATORO MD Feb 01, 2021 19:29
[2021-02-01] MEDS ORDERED: LIDO:MAALOX 1:1 20 ML SINGLE DOSE. PO PRN (19:30)
[2021-02-01] MEDS: ceFAZolin SODIUM IV Push 1 GM VIAL. IVP SCH (21:59)
[2021-02-01] MEDS: FAMOTIDINE 20 MG TABLET. PO SCH (21:59)
[2021-02-01] MEDS: CIPROFLOXACIN HCL 250 MG TABLET. PO SCH (22:00)
--- NOTE | 2021-02-01 23:17 | NUR ---
Upon giving Patient ordered Coumadin, Patient stated "It scares me." Asked Patient if she wanted to take it and Patient stated. "I'll take it i Dr. Flaherty ordered it, He's a good doctor." Coumadin given per order.
[2021-02-02 03:30] VITALS: BP 96/62
[2021-02-02] MEDS: ceFAZolin SODIUM IV Push 1 GM VIAL. IVP SCH ×2 (03:31→08:59)
[2021-02-02] MEDS: oxyCODONE IR 5 MG TABLET PO PRN ×4 (03:31→21:53)
[2021-02-02] MEDS ORDERED: MAGNESIUM HYDROXIDE 2,400 MG/30 ML ORAL.SUSP. PO PRN (06:00)
[2021-02-02] MEDS: ONDANSETRON PF 4 MG/2 ML VIAL. IVP SCH ×3 (06:17→11:42)
[2021-02-02] MEDS: traMADol 50 MG TABLET PO SCH ×3 (06:17→17:48)
[2021-02-02] MEDS: ONDANSETRON ODT 4 MG TAB.RAPDIS. PO SCH ×3 (06:17→11:43)
[2021-02-02] MEDS: GABAPENTIN 100 MG CAPSULE. PO SCH ×3 (06:18→21:52)
[2021-02-02 06:21] VITALS: BP 92/53
[2021-02-02 07:42] LABS: PROTHROMBIN TIME PATIENT 15.2 SEC (11.7-14.0)
[2021-02-02 07:57] LABS: ALBUMIN 2.8 g/dL (3.4-5.0); CREATININE 1.4 mg/dL (0.6-1.0); GFR 37.4; POTASSIUM 4.9 mmol/L (3.5-5.1); TOTAL BILIRUBIN 0.4 mg/dL (0.2-1.0); TOTAL PROTEIN 5.5 g/dL (6.4-8.2)
[2021-02-02 08:34] LABS: HEMATOCRIT 28.9 % (36.0-47.0); HEMOGLOBIN 9.7 g/dL (12.0-15.5)
--- NOTE | 2021-02-02 08:54 | PDOC ---
[employer] PROGRESS NOTE Date of Service DOS: DATE: 02/02/21 TIME: 08:47 Chief Complaint Chief Complaint Post-OP day 1 Osteoarthritis of right HIP UTI H/O falls Tobacco usage History of Present Illness History of Present Illness 02/02 Patient seen and examined at bedside. Patient resting comfortably. Chart reviewed. Case discussed with RN and case loader operator. The patient is a 70-year-old who has had really about a 9-month history of severe right hip pain. She thinks that has been progressively worse since a fall on her right side. Early this year, she had initially been treated with some compression fractures and a back injury, but was not progressing with physical therapy and was found to have severe degenerative arthritis in her hip and received an orthopedic referral from her physical therapist. She said that she has had a lot of difficulty walking progressively over this time period and has mainly having a severe limp and wheelchair also has a lot of difficulties in her apartment where there were some bed bugs issues and she indicates that the fall was actually result of trying to put insect problems in her apartment and she was trying to get out of her apartment and got partially overcome and fell on the floor on the right hip to make the situation progressively worse. Notable for smoking a couple of cigarettes only she said about two and that is it after her testing preoperatively. She had also had urinary tract infection symptoms, which precipitated a visit to Dr. Lynn preoperatively where her surgery was scheduled last week. At that time, her urinary culture results were somewhat unclear as culture results were reported to be taken then were reported that they were either not taken or lost and then they were found again and found to have a urinary tract infection. She was on Levaquin for a 1-week course. She no longer has burning on urination and no fever or chills. No chest pain, shortness of breath or other constitutional symptoms. However, she does indicate some recent vomiting and diarrhea. No lightheadedness. She is concerned that she is very severely limited in terms ofher ability to get around and does really want to proceed with surgery. Vitals/I&O Vitals/I&O: Vital Signs Date Time Temp Pulse Resp B/P (MAP) Pulse Ox O2 Delivery O2 Flow Rate FiO2 02/02/21 06:47 Nasal Cannula 4.0 02/02/21 06:21 97.7 69 18 92/53 (66) 94 97.7 I & O 11/2/21 11/2/21 11/3/21 15:00 23:00 07:00 Intake Total 1200 ml 900 ml 600 ml Output Total 100 ml 100 ml Balance 1100 ml 900 ml 500 ml Physical Exam General: No acute distress Heart: Regular rate, No murmurs Lungs: Clear Abdomen: Normal bowel sounds, Soft, No tenderness, No masses Extremities: No clubbing Skin: No rashes Labs Labs: Laboratory Tests Test 02/01/21 10:15 02/01/21 11:10 02/02/21 07:00 Urine Color Yellow Urine Clarity Clear Urine pH 5.0 (<5.0-8.0) Urine Specific [place] 1.020 (1.000-1.030) Urine Protein Negative mg/dL (NEG-TRACE) Urine Glucose (UA) Negative mg/dL (NEG) Urine Ketones (Stick) Negative mg/dL (NEG) Urine Blood Trace (NEG) Urine Nitrite Negative (NEG) Urine Bilirubin Negative (NEG) Urine Urobilinogen Dipstick 0.2 mg/dL (0.2 mg/dL) Urine Leukocyte Esterase Small (NEG) Urine RBC 0 /HPF (0-2) Urine WBC 0 /HPF (0-4) Urine Squamous Epithelial Cells Few /LPF Urine Bacteria 0 /HPF (0-FEW) Prothrombin Time 13.5 SEC (11.7-14.0) 15.2 SEC (11.7-14.0) Prothromb Time International Ratio 1.0 (0.8-1.1) 1.2 (0.8-1.1) Activated Partial Thromboplast Time 27 SEC (24-38) Hemoglobin 9.7 g/dL (12.0-15.5) Hematocrit 28.9 % (36.0-47.0) Mean Corpuscular Hemoglobin Concent 34 g/dL (31-37) Sodium Level 138 mmol/L (136-145) Potassium Level 4.9 mmol/L (3.5-5.1) Chloride Level 105 mmol/L (98-107) Carbon Dioxide Level 24 mmol/L (21-32) Anion Gap 9 (6-14) Blood Urea Nitrogen 23 mg/dL (7-20) Creatinine 1.4 mg/dL (0.6-1.0) Estimated GFR (Cockcroft-Gault) 37.4 BUN/Creatinine Ratio 16 (6-20) Glucose Level 110 mg/dL (70-99) Calcium Level 8.0 mg/dL (8.5-10.1) Total Bilirubin 0.4 mg/dL (0.2-1.0) Aspartate Amino Transf (AST/SGOT) 21 U/L (15-37) Alanine Aminotransferase (ALT/SGPT) 31 U/L (14-59) Alkaline Phosphatase 45 U/L (46-116) Total Protein 5.5 g/dL (6.4-8.2) Albumin 2.8 g/dL (3.4-5.0) Albumin/Globulin Ratio 1.0 (1.0-1.7) Review of Systems Review of Systems: ROS negative except as noted in HPI. Assessment and Plan Assessmemt and Plan Assessment: Post-OP day 1 Osteoarthritis of right HIP UTI H/O falls Tobacco usage Plan Abx for UTI Trend labs Wound care PT/OT Full Code Dispo: Inpatient post-op recovery Comment Review of Relevant I have reviewed the following items shaila (where applicable) has been applied. Medications: Current Medications Medications (Trade) Dose Ordered Sig/Shnae Route PRN Reason Start Time Stop Time Status Last Admin Dose Admin Warfarin Sodium (Coumadin Per Pharmacy) 1 each PRN DAILY PRN MC SEE COMMENTS 02/01/21 17:15 02/01/21 17:55 Sodium Chloride 1,000 ml @ 40 mls/hr Q24H IV 02/01/21 17:15 02/01/21 17:15 Tramadol HCl (Ultram) 50 mg Q6H PO 02/02/21 06:00 02/02/21 06:17 Oxycodone HCl (Roxicodone) 5 mg PRN Q4HRS PRN PO Pain score 4-6 02/01/21 17:15 02/02/21 03:31 Ciprofloxacin (Cipro) 500 mg BID PO 02/01/21 21:00 02/04/21 09:01 02/01/21 22:00 Warfarin Sodium (Coumadin) 5 mg 1X WARF ONCE PO 02/01/21 18:00 02/01/21 18:01 DC 02/01/21 23:16 Famotidine (Pepcid) 20 mg QHS PO 02/01/21 21:00 02/01/21 21:59 Cefazolin Sodium (Ancef) 1 gm Q6H IVP 02/01/21 21:00 02/02/21 09:01 02/02/21 03:31 Justifications for Admission Other Justification ZOLTAN RIVERS III DO Feb 02, 2021 08:54
--- NOTE | 2021-02-02 08:54 | RAD ---
EXAM: US RENAL BILAT 02/01/2021 5:27 AM INDICATION: UTIs. COMPARISON: None TECHNIQUE: grayscale and color Doppler ultrasound images of the kidneys and bladder. FINDINGS: The right kidney measures 10.2 x 3.8 x 4.3 cm. The left kidney measures 9.7 x 4.1 x 4.7 cm. Renal e chogenicity and cortical thickness are normal. No hydronephrosis. The urinary bladder is unremarkable without wall thickening or debris. IMPRESSION: Normal renal ultrasound. Electronically signed by: China Lomax MD (02/02/2021 8:52 AM) [id number]
[2021-02-02] MEDS: MELOXICAM 7.5 MG TABLET PO SCH (08:55)
[2021-02-02] MEDS: MULTIVITAMIN with MINERAL TABLET. PO SCH (08:55)
[2021-02-02] MEDS: FERROUS SULFATE 325 MG TABLET. PO SCH ×2 (08:56→17:49)
[2021-02-02] MEDS: SENNOSIDES/DOCUSATE 8.6/50MG TABLET. PO SCH (09:00)
[2021-02-02] MEDS: ACETAMINOPHEN 500 MG TABLET PO SCH ×3 (09:00→21:53)
[2021-02-02] MEDS: CIPROFLOXACIN HCL 250 MG TABLET. PO SCH ×2 (09:08→21:52)
--- NOTE | 2021-02-02 10:06 | NUR ---
Pharmacy Warfarin Dosing Note S:Pharmacy consulted to assist with anticoagulation therapy started 02/01/21 with target INR: 1.6 - 2.5 O:ARTURO MACHADO is a 70 year old F with [facility] LABS: Last INR: 1.2 Last HGB: 9.7 Last HCT: 28.9 Last PLT: 34 Last dose of 5 mg given on 02/01/21 at 2316 Vitamin K given: N Drug Interaction Changes: New Interacting Drug Ongoing Drug Interactions: Meloxicam, ciprofloxacin A:INR of 1.2 is below desired range. Target range for this patient is: 1.6 - 2.5 P: Warfarin dose: 5 mg Today at 1600 Bridge Therapy: None Next INR due 02/03/21 Pharmacy anticoagulation service will continue to follow. DUNCAN AGARWAL RPH, 02/02/21 [id number]
[2021-02-02] MEDS: IV NORMAL SALINE 1000ML BAG 1,000 ML IV SCH (11:40)
[2021-02-02] MEDS ORDERED: ONDANSETRON ODT 4 MG TAB.RAPDIS. PO PRN (12:00)
[2021-02-02] MEDS ORDERED: ONDANSETRON PF 4 MG/2 ML VIAL. IVP PRN (12:00)
--- NOTE | 2021-02-02 14:25 | NUR ---
Received orders to discharge with outpatient therapy that was arranged by Dr. Hedrick's office and prescriptions sent via electronic to pharmacy. Addendum: 02/02/21 at 1712 by BORA CHAPMAN RN Above note written on wrong patient
[2021-02-02 15:15] VITALS: BP 146/88
[2021-02-02] MEDS ORDERED: BISACODYL 10 MG SUPP.RECT. PR PRN (16:00)
[2021-02-02] MEDS ORDERED: WARFARIN 5 MG TABLET. PO ONE (16:00)
--- NOTE | 2021-02-02 16:30 | NUR ---
Discharged instructions and dressing supplies given. Answered questions and concerns. Verbalized understanding. Pt discharged home with outpatient therapy. Escorted out by w/c. Addendum: 02/02/21 at 1711 by BORA CHAPMAN RN Above note written on wrong patient
[2021-02-02 19:00] VITALS: BP 107/82
--- NOTE | 2021-02-02 20:08 | PDOC ---
PROGRESS NOTES Date of Service DATE: 02/02/21 TIME: 20:02 Subjective Subjective Problems overnight: Patient reports that hip feels much better than preoperatively especially getting up and around, no nausea or vomiting, 1 episode of diarrhea today Objective Vital Signs Vital Signs Date Time Temp Pulse Resp B/P (MAP) Pulse Ox O2 Delivery O2 Flow Rate FiO2 02/02/21 19:00 98.5 70 19 107/82 (90) 94 Nasal Cannula 4.5 98.5 Physical Exam Leg lengths equal distal neurovascular status intact debra dressing clean dry intact Labs Laboratory Tests Test 02/01/21 10:15 02/01/21 11:10 02/02/21 07:00 Urine Color Yellow Urine Clarity Clear Urine pH 5.0 (<5.0-8.0) Urine Specific [place] 1.020 (1.000-1.030) Urine Protein Negative mg/dL (NEG-TRACE) Urine Glucose (UA) Negative mg/dL (NEG) Urine Ketones (Stick) Negative mg/dL (NEG) Urine Blood Trace (NEG) Urine Nitrite Negative (NEG) Urine Bilirubin Negative (NEG) Urine Urobilinogen Dipstick 0.2 mg/dL (0.2 mg/dL) Urine Leukocyte Esterase Small (NEG) Urine RBC 0 /HPF (0-2) Urine WBC 0 /HPF (0-4) Urine Squamous Epithelial Cells Few /LPF Urine Bacteria 0 /HPF (0-FEW) Prothrombin Time 13.5 SEC (11.7-14.0) 15.2 SEC (11.7-14.0) Prothromb Time International Ratio 1.0 (0.8-1.1) 1.2 (0.8-1.1) Activated Partial Thromboplast Time 27 SEC (24-38) Hemoglobin 9.7 g/dL (12.0-15.5) Hematocrit 28.9 % (36.0-47.0) Mean Corpuscular Hemoglobin Concent 34 g/dL (31-37) Sodium Level 138 mmol/L (136-145) Potassium Level 4.9 mmol/L (3.5-5.1) Chloride Level 105 mmol/L (98-107) Carbon Dioxide Level 24 mmol/L (21-32) Anion Gap 9 (6-14) Blood Urea Nitrogen 23 mg/dL (7-20) Creatinine 1.4 mg/dL (0.6-1.0) Estimated GFR (Cockcroft-Gault) 37.4 BUN/Creatinine Ratio 16 (6-20) Glucose Level 110 mg/dL (70-99) Calcium Level 8.0 mg/dL (8.5-10.1) Total Bilirubin 0.4 mg/dL (0.2-1.0) Aspartate Amino Transf (AST/SGOT) 21 U/L (15-37) Alanine Aminotransferase (ALT/SGPT) 31 U/L (14-59) Alkaline Phosphatase 45 U/L (46-116) Total Protein 5.5 g/dL (6.4-8.2) Albumin 2.8 g/dL (3.4-5.0) Albumin/Globulin Ratio 1.0 (1.0-1.7) Laboratory Tests Test 02/02/21 07:00 Hemoglobin 9.7 g/dL (12.0-15.5) Hematocrit 28.9 % (36.0-47.0) Mean Corpuscular Hemoglobin Concent 34 g/dL (31-37) Prothrombin Time 15.2 SEC (11.7-14.0) Prothromb Time International Ratio 1.2 (0.8-1.1) Sodium Level 138 mmol/L (136-145) Potassium Level 4.9 mmol/L (3.5-5.1) Chloride Level 105 mmol/L (98-107) Carbon Dioxide Level 24 mmol/L (21-32) Anion Gap 9 (6-14) Blood Urea Nitrogen 23 mg/dL (7-20) Creatinine 1.4 mg/dL (0.6-1.0) Estimated GFR (Cockcroft-Gault) 37.4 BUN/Creatinine Ratio 16 (6-20) Glucose Level 110 mg/dL (70-99) Calcium Level 8.0 mg/dL (8.5-10.1) Total Bilirubin 0.4 mg/dL (0.2-1.0) Aspartate Amino Transf (AST/SGOT) 21 U/L (15-37) Alanine Aminotransferase (ALT/SGPT) 31 U/L (14-59) Alkaline Phosphatase 45 U/L (46-116) Total Protein 5.5 g/dL (6.4-8.2) Albumin 2.8 g/dL (3.4-5.0) Albumin/Globulin Ratio 1.0 (1.0-1.7) Imaging Intraoperative fluoroscopy images show excellent alignment of total hip arthroplasty with equal leg lengths and offset Renal ultrasound today reported as normal with no evidence of calculi Assessment Assessment POD#1 right total hip arthroplasty Plan Plan of Care Continue mobilize with physical therapy weightbearing as tolerated no formal hip precautions due to anterior approach Appreciate medical consult and follow Renal ultrasound negative for calculi or other concern for harboring chronic UTI infection IV cefazolin ending, continue ciprofloxacin for UTI/any concern for infectious diarrhea Social history may be a concern due to her conditions in the apartment, rehab screening placed postop day 0, patient does have a caregiver part-time that assists other clients as well; home health versus rehab placement depending on progress Justicifation of Admission Dx: Justifications for Admission: Justification of Admission Dx: N/A LORNA VILLALTA MD Feb 02, 2021 20:08
--- NOTE | 2021-02-02 21:00 | NUR ---
Patient showing signs of panic attack. Offers numerous complaints: "overtired", "I need more therapy, I'm not ready to go home alone." "If I go to a [place], I'll .", "I'm not crazy but I have a lot of problems". States she lives alone, has bed bugs in the [place] and that the mgr is extorting money". Also states she wants the "OT package from the gift shop but she doesn't have the money right now." Crying. Right hip is swollen and bruised and FELIPE is wet from edge to edge. Incision cleansed w/ Chloraprep, ABD and Medipore tape applied.
[2021-02-02] MEDS: FAMOTIDINE 20 MG TABLET. PO SCH (21:52)
[2021-02-02] MEDS: ZOLPIDEM 5 MG TABLET. PO PRN (21:53)
[2021-02-03] MEDS: ACETAMINOPHEN 500 MG TABLET PO SCH ×4 (03:00→20:33)
[2021-02-03] MEDS ORDERED: ALBUTEROL SULFATE 2.5 MG/3 ML NEBU. INH PRN (05:15)
[2021-02-03] MEDS: traMADol 50 MG TABLET PO SCH ×5 (06:20→23:25)
[2021-02-03 06:24] VITALS: BP 115/69
--- NOTE | 2021-02-03 07:12 | NUR ---
Surgical incision dressing changed again. No active bleeding noted.
--- NOTE | 2021-02-03 07:17 | NUR ---
Some home medications renewed. BP meds not renewed due to current hypotension. Patient is sleeping soundly.
[2021-02-03 08:29] LABS: HEMATOCRIT 26.6 % (36.0-47.0)
[2021-02-03 08:45] LABS: PROTHROMBIN TIME PATIENT 19.7 SEC (11.7-14.0)
[2021-02-03] MEDS: MELOXICAM 7.5 MG TABLET PO SCH (09:13)
[2021-02-03] MEDS: oxyCODONE IR 5 MG TABLET PO PRN ×3 (09:13→20:35)
[2021-02-03] MEDS: CALCIUM CARB/VIT D3 500/200 TABLET. PO SCH (09:13)
[2021-02-03] MEDS: SENNOSIDES/DOCUSATE 8.6/50MG TABLET. PO SCH (09:13)
[2021-02-03] MEDS: CIPROFLOXACIN HCL 250 MG TABLET. PO SCH ×2 (09:13→20:34)
[2021-02-03] MEDS: FERROUS SULFATE 325 MG TABLET. PO SCH ×2 (09:13→17:31)
[2021-02-03] MEDS: MULTIVITAMIN with MINERAL TABLET. PO SCH (09:13)
[2021-02-03] MEDS: clonazePAM 0.5 MG TABLET PO SCH ×3 (09:14→20:34)
--- NOTE | 2021-02-03 10:01 | NUR ---
Pharmacy Warfarin Dosing Note S: Pharmacy consulted to assist with anticoagulation therapy started 02/01/21 O: ARTURO MACHADO is a 70 year old F with KALI LABS: Last INR: 1.7 Last HGB: 9.7 Last HCT: 28.9 Last PLT: 34 Last dose of 5 mg given on 02/02/21 at 1749 Vitamin K given: N Ongoing Drug Interactions: Meloxicam, ciprofloxacin A:INR of 1.7 is within desired range. Target range for this patient is: 1.6 - 2.5 P: Warfarin dose: 3 mg Prior to Discharge then d/c home with 4mg daily Bridge Therapy: None Next INR due Sunday02/07/21 Pharmacy anticoagulation service will continue to follow. Yulissa Villarreal RPH, 02/03/21 100
[2021-02-03 11:05] VITALS: BP 100/56
--- NOTE | 2021-02-03 11:34 | PDOC ---
[facility] PROGRESS NOTE Date of Service DOS: DATE: 02/03/21 TIME: 11:32 Chief Complaint Chief Complaint Post-OP day 1 Osteoarthritis of right HIP UTI H/O falls Tobacco usage History of Present Illness History of Present Illness 02/03 Patient evaluated examined at bedside. She is doing well pain well controlled. No further urinary symptoms. Okay to discharge from hospitalist perspective. Okay to stop antibiotics for now. Recommend PCP follow-up and referral to urology. 02/02 Patient seen and examined at bedside. Patient resting comfortably. Chart reviewed. Case discussed with RN and therapeutic case manager. The patient is a 70-year-old who has had really about a 9-month history of severe right hip pain. She thinks that has been progressively worse since a fall on her right side. Early this year, she had initially been treated with some compression fractures and a back injury, but was not progressing with physical therapy and was found to have severe degenerative arthritis in her hip and received an orthopedic referral from her physical therapist. She said that she has had a lot of difficulty walking progressively over this time period and has mainly having a severe limp and wheelchair also has a lot of difficulties in her apartment where there were some bed bugs issues and she indicates that the fall was actually result of trying to put insect problems in her apartment and she was trying to get out of her apartment and got partially overcome and fell on the floor on the right hip to make the situation progressively worse. Notable for smoking a couple of cigarettes only she said about two and that is it after her testing preoperatively. She had also had urinary tract infection symptoms, which precipitated a visit to Dr. Lynn preoperatively where her surgery was scheduled last week. At that time, her urinary culture results were somewhat unclear as culture results were reported to be taken then were reported that they were either not taken or lost and then they were found again and found to have a urinary tract infection. She was on Levaquin for a 1-week course. She no longer has burning on urination and no fever or chills. No chest pain, shortness of breath or other constitutional symptoms. However, she does indicate some recent vomiting and diarrhea. No lightheadedness. She is concerned that she is very severely limited in terms ofher ability to get around and does really want to proceed with surgery. Vitals/I&O Vitals/I&O: Vital Signs Date Time Temp Pulse Resp B/P (MAP) Pulse Ox O2 Delivery O2 Flow Rate FiO2 02/03/21 11:05 98.2 92 20 100/56 (71) 92 Room Air 98.2 02/03/21 06:44 5.0 I & O 02/02/21 02/02/21 02/03/21 15:00 23:00 07:00 Intake Total 300 ml 480 ml Balance 300 ml 480 ml Physical Exam General: Alert, Oriented X3, Cooperative, No acute distress Heart: Regular rate, No murmurs Lungs: Clear Abdomen: Normal bowel sounds, Soft, No tenderness, No masses Extremities: No clubbing Skin: No rashes Labs Labs: Laboratory Tests Test 02/03/21 07:35 Hemoglobin 9.0 g/dL (12.0-15.5) Hematocrit 26.6 % (36.0-47.0) Mean Corpuscular Hemoglobin Concent 34 g/dL (31-37) Prothrombin Time 19.7 SEC (11.7-14.0) Prothromb Time International Ratio 1.7 (0.8-1.1) Assessment and Plan Assessmemt and Plan Assessment: Post-OP day 2 Osteoarthritis of right HIP UTI H/O falls Tobacco usage Plan Abx for UTI. Completed treatment Trend labs Wound care PT/OT Full Code Dispo: Home with assistance versus home with home health Comment Review of Relevant I have reviewed the following items shaila (where applicable) has been applied. Medications: Current Medications Medications (Trade) Dose Ordered Sig/Shane Route PRN Reason Start Time Stop Time Status Last Admin Dose Admin Warfarin Sodium (Coumadin) 5 mg 1X WARF ONCE PO 02/02/21 16:00 02/02/21 16:01 DC 02/02/21 17:49 Albuterol Sulfate (Ventolin Neb Soln) 2.5 mg PRN Q6HRS PRN INH SHORTNESS OF BREATH 02/03/21 05:15 02/03/21 06:48 Calcium/Vitamin D (Oscal D 500mg/ 200uts) 1 tab DAILY PO 02/03/21 09:00 02/03/21 09:13 Clonazepam (KlonoPIN) 1 mg TID PO 02/03/21 09:00 02/03/21 09:14 Justifications for Admission Other Justification DAVON VILLATORO MD Feb 03, 2021 11:34
[2021-02-03] MEDS: ANASTROZOLE 1 MG TABLET PO SCH (12:11)
--- NOTE | 2021-02-03 13:05 | NUR ---
covid test completed and sent to lab
[2021-02-03] MEDS ORDERED: WARFARIN 3 MG TABLET. PO ONE (15:00)
--- NOTE | 2021-02-03 15:00 | NUR ---
NEW debra DRESSING APPLIED. WANTS TO GO TO REHAB AT THIS TIME. DR. THOMPSON. SHE IS MORE AWAKE AND ALERT THIS AFTERNOON.
[2021-02-03 15:02] VITALS: BP 103/53
--- NOTE | 2021-02-03 18:32 | NUR ---
transferred to room 430.
[2021-02-03 19:00] VITALS: BP 117/54
[2021-02-03] MEDS: FAMOTIDINE 20 MG TABLET. PO SCH (20:34)
[2021-02-03] MEDS: ZOLPIDEM 5 MG TABLET. PO PRN (20:35)
[2021-02-03] MEDS ORDERED: ATORVASTATIN CALCIUM 10 MG TABLET. PO SCH (21:00)
--- NOTE | 2021-02-03 22:30 | PDOC ---
PROGRESS NOTES Date of Service DATE: 02/03/21 TIME: 22:26 Subjective Subjective Problems overnight: Still having hip pain reasonably controlled by pain medication, reluctant to fully participate in physical therapy, needed significant encouragement Objective Vital Signs Vital Signs Date Time Temp Pulse Resp B/P (MAP) Pulse Ox O2 Delivery O2 Flow Rate FiO2 02/03/21 19:00 98.5 92 16 117/54 (75) 87 Nasal Cannula 2.0 98.5 Physical Exam Rosalinda dressing intact leg lengths equal distal neurovascular status intact, muscle soreness with motion and with ambulation Labs Laboratory Tests Test 02/02/21 07:00 02/03/21 07:35 Hemoglobin 9.7 g/dL (12.0-15.5) 9.0 g/dL (12.0-15.5) Hematocrit 28.9 % (36.0-47.0) 26.6 % (36.0-47.0) Mean Corpuscular Hemoglobin Concent 34 g/dL (31-37) 34 g/dL (31-37) Prothrombin Time 15.2 SEC (11.7-14.0) 19.7 SEC (11.7-14.0) Prothromb Time International Ratio 1.2 (0.8-1.1) 1.7 (0.8-1.1) Sodium Level 138 mmol/L (136-145) Potassium Level 4.9 mmol/L (3.5-5.1) Chloride Level 105 mmol/L (98-107) Carbon Dioxide Level 24 mmol/L (21-32) Anion Gap 9 (6-14) Blood Urea Nitrogen 23 mg/dL (7-20) Creatinine 1.4 mg/dL (0.6-1.0) Estimated GFR (Cockcroft-Gault) 37.4 BUN/Creatinine Ratio 16 (6-20) Glucose Level 110 mg/dL (70-99) Calcium Level 8.0 mg/dL (8.5-10.1) Total Bilirubin 0.4 mg/dL (0.2-1.0) Aspartate Amino Transf (AST/SGOT) 21 U/L (15-37) Alanine Aminotransferase (ALT/SGPT) 31 U/L (14-59) Alkaline Phosphatase 45 U/L (46-116) Total Protein 5.5 g/dL (6.4-8.2) Albumin 2.8 g/dL (3.4-5.0) Albumin/Globulin Ratio 1.0 (1.0-1.7) Laboratory Tests Test 02/03/21 07:35 Hemoglobin 9.0 g/dL (12.0-15.5) Hematocrit 26.6 % (36.0-47.0) Mean Corpuscular Hemoglobin Concent 34 g/dL (31-37) Prothrombin Time 19.7 SEC (11.7-14.0) Prothromb Time International Ratio 1.7 (0.8-1.1) Assessment Assessment POD#2 total hip arthroplasty Plan Plan of Care Continue mobilize with physical therapy Warfarin anticoagulation per pharmacy Patient decided on rehabilitation which is a reasonable request given her difficulties with her reported apartment situation etc. Otherwise stable from an orthopedic standpoint and plan discharge tomorrow to [facility] facility pending approval/logistics Covid test etc. Appreciate hospitalist input and plan to discontinue her supplemental antibiotics on discharge Justicifation of Admission Dx: Justifications for Admission: Justification of Admission Dx: N/A LORNA VILLALTA MD Feb 03, 2021 22:30
[2021-02-03] MEDS ORDERED: WARF3TAB50 PO (22:33)
--- NOTE | 2021-02-03 22:35 | SNU/HH DC ---
DISCHARGE ORDERS DISCHARGE INFORMATION: DISCHARGE DATE: Feb 04, 2021 FINAL DIAGNOSIS Degenerative right hip, status post right total hip arthroplasty CONDITION ON DISCHARGE: Stable CODE STATUS: Code Status: Full CARE HOME: SNF STAY <30 DAYS: Yes POST DISCHARGE ORDERS: ACTIVITY ORDERS: Progressive ambulation WEIGHT BEARING STATUS: As tolerated BATHING ORDERS: Shower-keep dressing dry DIET AFTER DISCHARGE: Regular WOUND/INCISION CARE: Ice to area for comfort, Do not change dressing (Maintain debra dressing, call if saturated, otherwise when suction machine stops approximately 1 week postoperatively discard suction unit cut tail of dressing and tape over to maintain seal) FOLLOW-UP: PHYSICIAN FOLLOW-UP: Mr. Best 2 weeks postoperatively ANTICOAGULATION F/U NEEDED: Warfarin dosage and testing per [place] [facility] anticoagulation clinic TREATMENT/EQUIPMENT ORDERS: Physical Therapy For: Evalulation/Treatment DISCHARGE MEDICATIONS: Home Meds Reported Medications [super beets] No Conflict Check, 1 CAP PO DAILY for supplement 01/20/21 Melatonin (MELATONIN) 3 Mg Tab.rapdis, 3 MG PO QHS for sleep aid, TAB 01/20/21 Fluticasone Propionate (FLUTICASONE PROPIONATE NASAL SPRAY) 16 Gm [place].susp, 2 SPRAY NS DAILY for control allergies, EACH 01/20/21 Amlodipine Besylate (AMLODIPINE BESYLATE) 10 Mg Tablet, 10 MG PO DAILY for bp control, TAB 01/20/21 Ondansetron Hcl (ZOFRAN) 4 Mg Tablet, 4 MG PO BID PRN for NAUSEA/VOMITING, TAB 01/20/21 Metoprolol Succinate (METOPROLOL SUCCINATE ( XL )) 25 Mg Tab.er.24h, 50 MG PO DAILY for FOR HYPERTENSION, #30 TAB 0 Refills 01/20/21 Meloxicam (MELOXICAM) 15 Mg Tablet, 15 MG PO DAILY for pain control, TAB 01/20/21 Calcium Carbonate/Vitamin D3 (CALCIUM 600 + VIT D CAPLET) 1 Each Tablet, 1 EACH PO DAILY for supplement, TAB 01/20/21 Albuterol Sulfate (PROAIR HFA INHALER) 8.5 Gm Hfa.aer.ad, 1 PUFF INH PRN Q6HRS PRN for SHORTNESS OF BREATH 02/14/19 Lisinopril (LISINOPRIL) 20 Mg Tablet, 40 MG PO DAILY for FOR HYPERTENSION 02/14/19 Diazepam (VALIUM) 10 Mg Tablet, 5-10 MG PO PRN BID PRN for ANXIETY / AGITATION 10/11/16 Lovastatin (LOVASTATIN) 20 Mg Tablet, 20 MG PO HS for hld 03/23/15 Clonazepam (CLONAZEPAM) 1 Mg Tablet, 1 MG PO TID for anxiety 03/23/15 Anastrozole (ARIMIDEX) 1 Mg Tablet, 1 MG PO DAILY for breast cancer 09/28/14 Aspirin (ASPIR-LOW) 81 Mg Tablet.dr, 1 TAB PO DAILY for heart health 03/31/14 Multivitamin (MULTIVITAMINS) 1 Each Capsule, 1 EACH PO DAILY for supplement 03/31/14 [place]-3 Fatty Acids (FISH OIL) 300 Mg Capsule, 1000 MG PO DAILY for supplement 03/31/14 Discontinued Reported Medications Cyclobenzaprine Hcl (CYCLOBENZAPRINE HCL) 10 Mg Tablet, 10 MG PO QHS for spasms, TAB 01/20/21 LORNA VILLALTA MD Feb 03, 2021 22:35
[2021-02-03 23:00] VITALS: BP 109/56
[2021-02-04] MEDS: ACETAMINOPHEN 500 MG TABLET PO SCH ×3 (02:43→13:33)
[2021-02-04] MEDS: oxyCODONE IR 5 MG TABLET PO PRN ×3 (04:00→15:23)
[2021-02-04 04:01] LABS: HEMATOCRIT 24.6 % (36.0-47.0); HEMOGLOBIN 8.3 g/dL (12.0-15.5)
[2021-02-04 04:10] LABS: PROTHROMBIN TIME PATIENT 21.2 SEC (11.7-14.0)
[2021-02-04] MEDS: traMADol 50 MG TABLET PO SCH ×2 (06:31→12:09)
[2021-02-04 07:00] VITALS: BP 107/54
[2021-02-04] MEDS: clonazePAM 0.5 MG TABLET PO SCH ×2 (08:27→13:33)
[2021-02-04] MEDS: ANASTROZOLE 1 MG TABLET PO SCH (08:29)
[2021-02-04] MEDS: MULTIVITAMIN with MINERAL TABLET. PO SCH (08:30)
[2021-02-04] MEDS: CALCIUM CARB/VIT D3 500/200 TABLET. PO SCH (08:30)
[2021-02-04] MEDS: MELOXICAM 7.5 MG TABLET PO SCH (08:30)
[2021-02-04] MEDS: CIPROFLOXACIN HCL 250 MG TABLET. PO SCH (08:30)
[2021-02-04] MEDS: SENNOSIDES/DOCUSATE 8.6/50MG TABLET. PO SCH (08:30)
[2021-02-04] MEDS: FERROUS SULFATE 325 MG TABLET. PO SCH ×2 (08:30→16:13)
--- NOTE | 2021-02-04 10:08 | NUR ---
Pharmacy Warfarin Dosing Note S:Pharmacy consulted to assist with anticoagulation therapy started 02/01/21 with target INR: 1.6 - 2.5 O:ARTURO MACHADO is a 70 year old F with KALI Allergies:Sulfa (Sulfonamide Antibiotics) ezetimibe (From Zetia) Height: 5 feet, 4 inches Weight: 75.6 kg LABS: Last INR: 1.9 Last HGB: 8.3 Last HCT: 24.6 Last PLT: - Ongoing Drug Interactions: Meloxicam, ciprofloxacin (discontinued 02/04) A:INR within desired Range. Target Range for this patient is: 1.6 - 2.5 P: Warfarin dose: 4 mg will be given today prior to discharge. Give 4mg daily. Draw INR on 02/07/21, and request attending physician to dose warfarin for a goal INR 1.6 - 2.5 through end of therapy 03/13/21 (6 weeks of therapy). Indication for warfarin is prevention of VTE after major joint surgery. Yulissa Villarreal RPH, 02/04/21 100
--- NOTE | 2021-02-04 14:23 | SNU/HH DC ---
DISCHARGE WITH HOME HEALTH DISCHARGE INFORMATION: Discharge Date: Feb 04, 2021 Final Diagnosis: Degenerative joint disease right hip; status post right total hip arthroplasty Condition on Discharge: Stable CODE STATUS: Code Status: Full HOME HEALTH: Face to Face: I certify this patient is under my care and that I, or a nurse practitioner or physician's animal assistant working with me, had a face to face encounter that meets the physician face to face encounter requirements with this patient on [02/04/2021]. Medical Complications: S/P Joint Replacement Senior Living For: Assess/Skilled Observatio RN For Eval/Treatment: Yes Physical Therapy For: Evalulation/Treatment Pt Meets Homebound Status: Limited distance walking POST DISCHARGE ORDERS: Activity Instructions for Disc: Activity as tolerated, Progressive ambulation Weight Bearing Status after Di: As tolerated Bathing Instructions: Shower-keep dressing dry, No Tub Bath until see DIET AFTER DISCHARGE: Regular Wound/Incision Care: Ice to area for comfort, Keep wound/cast CDI, Do not change dressing (Maintain felipe dressing intact call if saturated, otherwise when suction machine stops cut tail of dressing discard suction machine and tape over dressing to maintain seal) Other wound/incision instructi: DO NOT change FELIPE dressing. It remains in place till your appointment FOLLOW-UP: Follow up with: Mr. Best 2 weeks postoperatively Follow Up With: DESMOND Best (Dr Flaherty) on 02/15/21 at 0930. [phone] Warfarin Follow UP: Warfarin dosage and testing per [place] [facility] CERTIFICATION STATEMENT: Certification Statement: Certification Statement: Based on the above finding, I certify that this patient is confined to the home and needs intermittent care home care, physical therapy and/or speech therapy, or continues to need occupational therapy.~ This patient is under my care, and I have initiated the establishment of the plan of care.~ This patient will be followed by myself or a community physician who will periodically review the plan of care. Home Meds Reported Medications [super beets] No Conflict Check, 1 CAP PO DAILY for supplement 01/20/21 Melatonin (MELATONIN) 3 Mg Tab.rapdis, 3 MG PO QHS for sleep aid, TAB 01/20/21 Fluticasone Propionate (FLUTICASONE PROPIONATE NASAL SPRAY) 16 Gm [place].susp, 2 SPRAY NS DAILY for control allergies, EACH 01/20/21 Amlodipine Besylate (AMLODIPINE BESYLATE) 10 Mg Tablet, 10 MG PO DAILY for bp control, TAB 01/20/21 Ondansetron Hcl (ZOFRAN) 4 Mg Tablet, 4 MG PO BID PRN for NAUSEA/VOMITING, TAB 01/20/21 Metoprolol Succinate (METOPROLOL SUCCINATE ( XL )) 25 Mg Tab.er.24h, 50 MG PO DAILY for FOR HYPERTENSION, #30 TAB 0 Refills 01/20/21 Meloxicam (MELOXICAM) 15 Mg Tablet, 15 MG PO DAILY for pain control, TAB 01/20/21 Calcium Carbonate/Vitamin D3 (CALCIUM 600 + VIT D CAPLET) 1 Each Tablet, 1 EACH PO DAILY for supplement, TAB 01/20/21 Albuterol Sulfate (PROAIR HFA INHALER) 8.5 Gm Hfa.aer.ad, 1 PUFF INH PRN Q6HRS PRN for SHORTNESS OF BREATH 02/14/19 Lisinopril (LISINOPRIL) 20 Mg Tablet, 40 MG PO DAILY for FOR HYPERTENSION 02/14/19 Diazepam (VALIUM) 10 Mg Tablet, 5-10 MG PO PRN BID PRN for ANXIETY / AGITATION 10/11/16 Lovastatin (LOVASTATIN) 20 Mg Tablet, 20 MG PO HS for hld 03/23/15 Clonazepam (CLONAZEPAM) 1 Mg Tablet, 1 MG PO TID for anxiety 03/23/15 Anastrozole (ARIMIDEX) 1 Mg Tablet, 1 MG PO DAILY for breast cancer 09/28/14 Aspirin (ASPIR-LOW) 81 Mg Tablet.dr, 1 TAB PO DAILY for heart health 03/31/14 Multivitamin (MULTIVITAMINS) 1 Each Capsule, 1 EACH PO DAILY for supplement 03/31/14 [place]-3 Fatty Acids (FISH OIL) 300 Mg Capsule, 1000 MG PO DAILY for supplement 03/31/14 Discontinued Reported Medications Cyclobenzaprine Hcl (CYCLOBENZAPRINE HCL) 10 Mg Tablet, 10 MG PO QHS for spasms, TAB 01/20/21 LORNA FLAHERTY MD Feb 04, 2021 14:23
[2021-02-04] MEDS ORDERED: OXYC5CAP PO (14:25)
[2021-02-04] MEDS ORDERED: WARFARIN 4 MG TABLET. PO SCH (16:00)
--- NOTE | 2021-02-04 17:51 | NUR ---
Patient left around 1730 with her caregiver Elly. FELIPE dressing CDI, working properly, and instructions deeply addressed on at home care. Coumadin given and instructed by pharmacy prior to dismissal. Pain medication sent to pharmacy per Dr Flaherty. Discharge education addressed by the doctor, nurse, OT, PT, HH, and the event planner prior to dismissal for at home care. Patient was wanting to go to a SNU yesterday but today absolutely refused so extra education was given to the patient to make sure she was fully safe to go home with HH prior to discharge. She left with all her belongings. No concerns noted at discharge.
--- NOTE | 2021-02-04 20:44 | PDOC ---
[facility] PROGRESS NOTE Date of Service DOS: DATE: 02/04/21 TIME: 20:44 Chief Complaint Chief Complaint Post-OP day 1 Osteoarthritis of right HIP UTI H/O falls Tobacco usage History of Present Illness History of Present Illness 02/04 Patient evaluated and examined at bedside. Pain pretty under control. Okay to discharge. 02/03 Patient evaluated examined at bedside. She is doing well pain well controlled. No further urinary symptoms. Okay to discharge from hospitalist perspective. Okay to stop antibiotics for now. Recommend PCP follow-up and referral to urology. 02/02 Patient seen and examined at bedside. Patient resting comfortably. Chart reviewed. Case discussed with RN and nurse case manager. The patient is a 70-year-old who has had really about a 9-month history of se yoshi right hip pain. She thinks that has been progressively worse since a fall on her right side. Early this year, she had initially been treated with some compression fractures and a back injury, but was not progressing with physical therapy and was found to have severe degenerative arthritis in her hip and received an orthopedic referral from her physical therapist. She said that she has had a lot of difficulty walking progressively over this time period and has mainly having a severe limp and wheelchair also has a lot of difficulties in her apartment where there were some bed bugs issues and she indicates that the fall was actually result of trying to put insect problems in her apartment and she was trying to get out of her apartment and got partially overcome and fell on the floor on the right hip to make the situation progressively worse. Notable for smoking a couple of cigarettes only she said about two and that is it after her testing preoperatively. She had also had urinary tract infection symptoms, which precipitated a visit to Dr. Lynn preoperatively where her surgery was scheduled last week. At that time, her urinary culture results were somewhat unclear as culture results were reported to be taken then were reported that they were either not taken or lost and then they were found again and found to have a urinary tract infection. She was on Levaquin for a 1-week course. She no longer has burning on urination and no fever or chills. No chest pain, shortness of breath or other constitutional symptoms. However, she does indicate some recent vomiting and diarrhea. No lightheadedness. She is concerned that she is very severely limited in terms ofher ability to get around and does really want to proceed with surgery. Vitals/I&O Vitals/I&O: Vital Signs Date Time Temp Pulse Resp B/P (MAP) Pulse Ox O2 Delivery O2 Flow Rate FiO2 02/04/21 15:53 90 Room Air 02/04/21 07:00 98.4 80 16 107/54 (71) 98.4 02/04/21 06:31 2.0 I & O 02/03/21 02/03/21 02/04/21 15:00 23:00 07:00 Intake Total 640 ml 240 ml Balance 640 ml 240 ml Physical Exam General: Alert, Oriented X3, Cooperative, No acute distress Heart: Regular rate, No murmurs Lungs: Clear Abdomen: Normal bowel sounds, Soft, No tenderness, No masses Extremities: No clubbing Skin: No rashes Labs Labs: Laboratory Tests Test 02/04/21 03:55 Hemoglobin 8.3 g/dL (12.0-15.5) Hematocrit 24.6 % (36.0-47.0) Mean Corpuscular Hemoglobin Concent 34 g/dL (31-37) Prothrombin Time 21.2 SEC (11.7-14.0) Prothromb Time International Ratio 1.9 (0.8-1.1) Comment Review of Relevant I have reviewed the following items shaila (where applicable) has been applied. Medications: Current Medications Medications (Trade) Dose Ordered Sig/Shane Route PRN Reason Start Time Stop Time Status Last Admin Dose Admin Atorvastatin Calcium (Lipitor) 5 mg QHS PO 02/03/21 21:00 02/04/21 17:54 DC 02/03/21 20:34 Warfarin Sodium (Coumadin) 4 mg DAILY16 PO 02/04/21 16:00 02/04/21 17:54 DC 02/04/21 15:23 Justifications for Admission Other Justification DAVON VILLATORO MD Feb 04, 2021 20:44
== END 2021-02-04 17:45 | disposition home health service (06) | DRG 470 ==
LOC: SURG 09:35 → 4 SOUTHEST 17:17 → SURG 18:00 → 4 SOUTHEST 18:00 → OBSVTOIN 02-03 20:20 → 4 NORTH 02-03 20:21
PROVIDERS: ADMIT Orthopaedic Surgery; ATTEND Orthopaedic Surgery
PROC: 0SR903Z Replacement of Right Hip Joint with Ceramic Synthetic Substitute, Open Approach (ICD-10-PCS; principal; 2021-02-01 11:15)
DX: M16.11 Unilateral primary osteoarthritis, right hip (principal); N39.0 Urinary tract infection, site not specified; F11.20 Opioid dependence, uncomplicated; M85.80 Other specified disorders of bone density and structure, unspecified site; Z80.3 Family history of malignant neoplasm of breast; Z80.49 Family history of malignant neoplasm of other genital organs; Z80.8 Family history of malignant neoplasm of other organs or systems; Z85.3 Personal history of malignant neoplasm of breast; Z87.891 Personal history of nicotine dependence; Z91.81 History of falling; Z96.641 Presence of right artificial hip joint; F41.9 Anxiety disorder, unspecified; M19.90 Unspecified osteoarthritis, unspecified site; W18.39XA Other fall on same level, initial encounter; Y93.89 Activity, other specified; Y92.89 Other specified places as the place of occurrence of the external cause; Y99.8 Other external cause status
CPT/HCPCS: 36415; 76000; 76770; 80053; 81001; 85014; 85018; 85610; 85730; 86850; 86900; 86901; 87086; 88304; 88311; 94640; 99406; A4213; A4930; A6223; A6258; A6402; A6550; C1755; C1776; G0378; G0379; J0171; J0690; J1100; J1170; J1885; J2270; J2370; J2405; J2704; J2710; J2795; J3010; J3370; J3490; U0003; U0005; 97110-GP; 97116-GP; 97150-GP; 97530-GP; 97535-GO; J7613

== ENCOUNTER → 2021-07-18 | Outpatient (CLI) | payer MEDICARE, OTHER ==
[~2021-07-18] MED LIST changes: -ACETAMINOPHEN 500 MG TABLET PO PRN; -GABAPENTIN 300 MG CAPSULE. PO ONE; -HYDROmorphone 2 MG/ML VIAL IVP PRN; -IV RINGERS,LACTATED 1000ML 1,000 ML IV SCH; -MELOXICAM 7.5 MG TABLET PO ONE; -MORPHINE SULFATE 2 MG/ML INJ. IVP PRN; -MORPHINE SULFATE 5 MG, KETOROLAC 30MG VIAL 30 MG, ROPIVacaine 0.5% PF 60 ML, EPINEPHrin... INT ART ONE; +OXYC5CAP PO; -PROCHLORPERAZINE 10 MG/2 ML VIAL. IVP PRN; +WARF3TAB50 PO; -ceFAZolin SODIUM IV Push 1 GM VIAL. IVP PRN; -fentaNYL PF VIAL 100 MCG/2 ML VIAL IVP PRN
--- NOTE | 2021-07-18 13:20 | RAD ---
BILATERAL SCREENING MAMMOGRAM History: Routine screening. History of right breast cancer in 2015. Comparison: Most recently on 07/14/2020. Technique: Routine 2D and 3D tomosynthesis digital mammogram views were obtained bilaterally. Interpr etation was assisted with the use of computer-aided detection. Findings: Breast Tissue Density B : There are scattered areas of fibroglandular density. There are no dominant masses, suspicious microcalcifications, or newly developed architectural distor tion. Lumpectomy changes again noted on the right. IMPRESSION: No mammographic evidence of malignancy. Recommend routine screening mammography in one year. BI-RADS category 1: Negative. Patient information is entered into the reminder system with a target due date for the next screening mammogram. "Our facility is accredited by the [employer] Mammography Program." Electronically signed by: RAD SÁNCHEZ MD (07/18/2021 1:17 PM) [id number]
== END ==
LOC: MAMMO 11:57
PROVIDERS: ATTEND Internal Medicine Hematology & Oncology
DX: Z12.31 Encounter for screening mammogram for malignant neoplasm of breast (principal)
CPT/HCPCS: 77063; 77067